=== PATIENT | female | born 1970 | race Caucasian/White ===

== ENCOUNTER 2018-08-04 16:51 | Emergency (ER) | payer SELFPAY ==
[2018-08-04] MEDS ORDERED: ASPIRIN 81 MG CHEW TAB PO ONE (17:01)
[2018-08-04] MEDS ORDERED: NITROGLYCERIN 0.4 MG TAB.SUBL SL ONE (17:02)
[2018-08-04 17:10] LABS: BASOPHILS % 0.4 (0.0-1.5); EOSINOPHILS % 2.1 % (0.0-6.8); MEAN CORPUSCULAR HEMOGLOBIN 30.4 pg (28.0-34.0); MONOCYTES % 5.1 % (0.0-11.0)
[2018-08-04] MEDS ORDERED: ONDANSETRON HCL/PF 4 MG/ 2ML VIAL IVP ONE (17:10)
[2018-08-04] MEDS ORDERED: fentaNYL CITRATE/PF 100 MCG/2 ML INJ. IVP ONE (17:10)
[2018-08-04 17:11] LABS: NEUTROPHILS # 6.2 # k/uL (1.4-7.7)
[2018-08-04 17:29] LABS: eGFR (Non-African) > 60
--- NOTE | 2018-08-04 19:21 | ED Physician Documentation ---
General Adult - HISTORIAN Historian: patient - HPI Stated Complaint: back pain-shoulder blade area Chief Complaint: Low Back Pain/ Injury Additional Information: Intro self as SNAGGER. pt presents to the ED via POV with 10/10 severe non radiating back pain and dyspnea. pt reports chills diaphoresis nausea. pt denies current chest pain,, syncope/near syncope, headache, dizziness, visual disturbances, v/d, fever, rash, sick contacts, dysuria, trauma. melena or hematochezia, bleeding or easy bruising, change in bowel or bladder function. anxiety or depression. ROS Negative unless otherwise specified. Pt denies cardiac hx or other history. denies having a PCP. - ROS CONST: chills MS/SKIN/LYMPH: none NEURO/PSYCH: denies: difficulty walking - PAST HX Past History: none Surgeries/Procedures: none Allergies/Adverse Reactions: Allergies Allergy/AdvReac Type Severity Reaction Status Date / Time No Known Drug Allergies Allergy Verified 08/04/18 17:16 Home Medications: Ambulatory Orders Medication Instructions Recorded NK 08/04/15 - SOCIAL HX Smoking History: non-smoker Alcohol Use: none Drug Use: none - FAMILY HX Family History: No - VITAL SIGNS Vital Signs: Vital Signs Temp Pulse Resp BP Pulse Ox 98.0 F 76 32 H 129/59 96 08/04/18 16:52 08/04/18 18:30 08/04/18 16:52 08/04/18 16:52 08/04/18 18:30 - REVIEWED ASSESSMENTS Nursing Assessment Reviewed: Yes Vitals Reviewed: Yes Progress - Progress Progress: pain improved after fentanyl, norflex - EKG/XRAY/CT EKG: NSR Comments: rate [address] depression/elevation. normal intervals axis qrs. interp by nc ED Results Lab/Radiology - Lab Results Lab Results: Lab Results 08/04/18 08/04/18 08/04/18 Unknown 16:57 16:57 WBC 10.00 K/ul K/ul (4.00-12.00) RBC 4.54 M/ul M/ul (3.90-5.20) Hgb 13.8 g/dL g/dL (12.0-16.0) Hct 40.7 % % (34.5-46.5) MCV 90.0 fl fl (80.0-100.0) MCH 30.4 pg pg (28.0-34.0) MCHC 33.9 g/dL g/dL (30.0-36.0) RDW 12.7 % % (11.3-14.3) Plt Count 230 K/mm3 K/mm3 (130-400) Neut % (Auto) 62.0 % % (39.0-79.0) Lymph % (Auto) 30.4 % % (16.0-50.0) Morton % (Auto) 5.1 % % (0.0-11.0) Eos % (Auto) 2.1 % % (0.0-6.8) Baso % (Auto) 0.4 (0.0-1.5) Neut # (Auto) 6.2 # k/uL # k/uL (1.4-7.7) Lymph # (Auto) 3.0 # k/uL # k/uL (0.6-4.0) Morton # (Auto) 0.5 # k/uL # k/uL (0.0-0.9) Eos # (Auto) 0.2 # k/uL # k/uL (0.0-0.6) Baso # (Auto) 0.0 # k/uL # k/uL (0.0-0.5) D-Dimer 569 ng/mL ng/mL (6.0-682) Sodium 140 mmol/L mmol/L (136-145) Potassium 3.9 mmol/L mmol/L (3.5-5.1) Chloride 101 mmol/L mmol/L (98-107) Carbon Dioxide 28 mmol/L mmol/L (22-30) BUN 14 mg/dL mg/dL (7-17) Creatinine 0.60 mg/dL mg/dL (0.52-1.04) Estimated Creat Clear 326 Est GFR ( Amer) > 60 (60 - ) Est GFR (Non-Af Amer) > 60 (60 - ) Glucose 95 mg/dL mg/dL (74-106) Calcium 8.3 mg/dL L mg/dL (8.4-10.2) Total Bilirubin 1.0 mg/dL mg/dL (0.2-1.3) AST 42 U/L U/L (15-46) ALT 31 U/L U/L (13-69) Alkaline Phosphatase 81 U/L U/L (38-126) Troponin I < 0.03 ng/mL L ng/mL (0.03-0.06) Total Protein 8.2 g/dL g/dL (6.3-8.2) Albumin 3.9 g/dL g/dL (3.5-5.0) - Radiology Radiology Impressions: Report Submission Date: Aug 04, 2018 7:12:07 PM PHYSICAL SCIENCES PROFESSOR Patient Study Name: EMILE THOMPSON Date: Aug 04, 2018 6:38:15 PM PHYSICAL SCIENCES PROFESSOR Modality Type: CT\SR Gender: F Description: CT CHEST W/ CONTRAST : 72 Institution: [facility] Physician: CATALINA DONOHUE CT chest with contrast CLINICAL HISTORY: chest back pain x3 days, comes and goes, no sx hx (Hx) / ITS.REASON chest back pain TECHNIQUE: 3 mm contiguous axial images of the chest with contrast. Sagittal and coronal reconstructions. FINDINGS: The lungs are clear. There is no evidence of pulmonary infiltrate, pleural effu bg or pneumothorax. The cardiac and mediastinal vascular structures enhance appropriately. The aorta and pulmonary arteries are normal in caliber. . The mediastinal contents are within normal limits.The osseous structures are unremarkable. There is old granulomatous disease. IMPRESSION: No acute disease in the chest Electronically signed on Aug 04, 2018 7:12:07 PM PHYSICAL SCIENCES PROFESSOR by: Hammad Juarez - Orders Orders: ED Orders Category Date Time Status Continuous EKG monitoring Q30M Care 08/04/18 16:57 Active Continuous Pulse Oximetry Q30M Care 08/04/18 16:[address] IV Lock 1T Care 08/04/18 16:57 Active CHEST 1VIEW [RAD] Stat Exams 08/04/[address] CHEST W/ CONTRAST Stat Exams 08/04/18 Ordered CBC/PLATELET/DIFF Routine Lab 08/04/18 16:57 Completed CMP Routine Lab 08/04/18 16:57 Completed D DIMER Stat Lab 08/04/18 Completed MAGNESIUM Stat Lab 08/04/18 Ordered TROPONIN I (cTnI) Stat Lab 08/04/18 Completed Aspirin Med 08/04/18 17:01 Discontinued 324 mg PO NOW ONE Nitroglycerin [Nitroquick] Med 08/04/18 17:02 Discontinued 0.4 mg SL NOW ONE Ondansetron HCl/Pf [Zofran 4 mg/2 ml] Med 08/04/18 17:10 Discontinued 4 mg IVP NOW ONE fentaNYL CITRATE/PF [Duragesic] Med 08/04/18 17:10 Discontinued 100 mcg IVP NOW ONE Oxygen Daily Oxygen 08/04/18 17:00 Ordered EKG WITH COMPARISON Stat Ther 08/04/18 16:57 Ordered General Adult Physical Exam - PHYSICAL EXAM GENERAL APPEARANCE: moderate distress EENT: eye inspection normal, ENT inspection normal, pharynx normal, no signs of dehydration, JOSE, no nystagmus, TM's nml NECK: normal inspection, thyroid normal RESPIRATORY: no resp distress, chest non-tender, breath sounds normal CVS: reg rate & rhythm, heart sounds normal, equal pulses, no murmur, no gallop, PMI nml, no JVD, no friction rub, 24 ABDOMEN: soft, no organomegaly, normal bowel sounds, no abdominal bruit, no distension BACK: no CVA tenderness, other (tenderness inferior to right scapula ) SKIN: normal color, diaphoresis, other (warm) EXTREMITIES: non-tender, normal range of motion, no evidence of injury, no edema, J, SNAGGER NEURO: oriented X3, motor nml, sensation nml, mood/affect nml Discharge Clincal Impression: Back pain Qualifiers: Back pain location: back pain in unspecified location Chronicity: acute Back pain laterality: unspecified Qualified Code(s): M54.9 - Dorsalgia, unspecified Referrals: Primary Doctor,No [Primary Care Provider] - 2 Days Additional Instructions: Rest. Ibuprofen 600 mg every 6 hours as needed for back pain Flexeril 10 m/2 to one tab every 8 hours as needed for muscle spasm. Do not drink alcohol or drive with this medication. Follow up with primary care next week. seek medical care immediately if difficult to wake, difficulty breathing, feeling faint or fainting, increased rash, chest pain, shortness of breath, or fever not controlled by tylenol/motrin or any concern. PLEASE UNDERSTAND THAT THIS IS AN EMERGENCY EVALUATION FOR YOUR COMPLAINT AND BY NATURE IS LIMITED AND NOT A SUBSTITUTE FOR ONGOING MEDICAL CARE. EVEN THOUGH TEST RESULTS AND TREATMENT PLAN WERE EXPLAINED THERE MAY BE A NEED FOR ADDITIONAL TESTING TO FULLY DETERMINE THE EXTENT OF YOUR ILLNESS/INJURY/OR CORTEZ RN SO YOU SHOULD CONTACT AND OR ESTABLISH WITH A PRIMARY CARE PROVIDER (OR REFERRAL DOCTOR IF APPLICABLE) FOR AN APPOINTMENT SOON POSSIBLE. Condition: Good Disposition: 01 HOME, SELF-CARE Decision to Admit: NO Date of Decison to Admit: 08/04/18 Decision Time: 19:32
[2018-08-04] MEDS ORDERED: KETOROLAC TROMETHAMINE 30 MG/1ML VIAL IVP ONE (19:22)
[2018-08-04] MEDS ORDERED: ORPHENADRINE CITRATE 60 MG/2 ML ML IV ONE (19:22)
[2018-08-04 20:01] VITALS: BP 154/79
--- NOTE | 2018-08-05 04:12 | Diagnostic Imaging Report ---
CATALINA DONOHUE [facility] [address] [facility].[address] [address] Report Submission Date: Aug 04, 2018 7:12:07 PM DIRECT SERVICE PROFESSIONAL Patient Study Name: EMILE THOMPSON Date: Aug 04, 2018 6:38:15 PM DIRECT SERVICE PROFESSIONAL Modality Type: CT\SR Gender: F Description: CT CHEST W/ CONTRAST : 72 Institution: [facility] Physician: CATALINA DONOHUE CT chest with contrast CLINICAL HISTORY: chest back pain x3 days, comes and goes, no sx hx (Hx) / ITS.REASON chest back pain TECHNIQUE: 3 mm contiguous axial images of the chest with contrast. Sagittal and coronal reconstructions. FINDINGS: The lungs are clear. There is no evidence of pulmonary infiltrate, pleural effusion or pneumothorax. The cardiac and mediastinal vascular structures enhance appropriately. The aorta and pulmonary arteries are normal in caliber. . The mediastinal contents are within normal limits.The osseous structures are unremarkable. There is old granulomatous disease. IMPRESSION: No acute disease in the chest Electronically signed on Aug 04, 2018 7:12:07 PM DIRECT SERVICE PROFESSIONAL by: Hammad LITTLE
--- NOTE | 2018-08-05 04:13 | Diagnostic Imaging Report ---
CATALINA DONOHUE [facility] [address] [facility].[address] [address] Report Submission Date: Aug 04, 2018 5:23:41 PM DIGITAL MEDIA BUYER Patient Study Name: EMILE THOMPSON Date: Aug 04, 2018 5:05:07 PM DIGITAL MEDIA BUYER Modality Type: DX Gender: F Description: CHEST : 72 Institution: [facility] Physician: CATALINA DONOHUE Portable chest Clinical history: Posterior chest pain for about 4 days that is worse today. Findings: Examination the chest single portable AP view demonstrates the lungs to be hypoventilated but clear. Cardiovascular and mediastinal silhouettes are within normal limits. Bony thorax is intact. Impression: 1. Hypoventilation. 2. No active disease. Electronically signed on Aug 04, 2018 5:23:41 PM DIGITAL MEDIA BUYER by: Cristopher LITTLE
== END 2018-08-04 19:53 | disposition home or self-care (01) ==
LOC: ED 16:51
DX: M54.9 Dorsalgia, unspecified (principal)
CPT/HCPCS: 36415; 71045; 71260; 80053; 83735; 84484; 85025; 85379; 93005; 96374; 96375; 99284; 99285; J1885; J2360; J2405; J3010; Q9967; S1016

== ENCOUNTER 2019-08-21 12:56 | Emergency (ER) | payer SELFPAY ==
[2019-08-21 13:18] VITALS: BP 165/67
--- NOTE | 2019-08-21 13:20 | ED Physician Documentation ---
General Adult - HISTORIAN Historian: patient - HPI Stated Complaint: Cough Chief Complaint: General Adult Onset: days ago Timing: still present Severity: moderate Further Comments: yes (Pt is a 49 yo female with cough, body aches x 4 day. Pt had fever 101.1 at home earlier in the course of sx. No n/v, cp.) - ROS CONST: fever, other (malaise, body aches) EYES/ENT: sore throat (2nd to coughing) CVS/RESP: cough GI/: none MS/SKIN/LYMPH: none - PAST HX Past History: other (hysterectomy) Allergies/Adverse Reactions: Allergies Allergy/AdvReac Type Severity Reaction Status Date / Time No Known Drug Allergies Allergy Verified 08/21/19 13:18 Home Medications: Ambulatory Orders Medication Instructions Recorded NK 08/04/15 - SOCIAL HX Smoking History: non-smoker - FAMILY HX Family History: No - VITAL SIGNS Vital Signs: Vital Signs Temp Pulse Resp BP Pulse Ox 96.8 F L 68 16 165/67 96 08/21/19 13:00 08/21/19 13:00 08/21/19 13:00 08/21/19 13:00 08/21/19 13:00 - REVIEWED ASSESSMENTS Nursing Assessment Reviewed: Yes Vitals Reviewed: Yes Progress - Progress Progress: Examination: PA and lateral chest. History: Evaluate lung avalos. Comparison exam: 04 August 2018 Findings: PA and lateral views of the chest demonstrates a normal cardiac and mediastinal silhouette. Left mid to lower lung focal consolidation. No blunting of the costophrenic margins. Osseous structures are appropriate for age. Impression: Left mid to lower lung focal pneumonic consolidation. Rx Doxycycline 100 mg. Take one every 12 hours for 10 days. Rx Robitussin AC (with codeine). Take 10 ml by mouth every 6 hours as needed for cough. Rx Albuterol (90 mcg/spray). Take 2 puffs every 4 hours as needed for wheezing. General Adult Physical Exam - PHYSICAL EXAM GENERAL APPEARANCE: moderate distress EENT: pharynx normal NECK: normal inspection RESPIRATORY: wheezes CVS: reg rate & rhythm, heart sounds normal ABDOMEN: soft, no organomegaly, normal bowel sounds BACK: normal inspection, no CVA tenderness SKIN: warm/dry, normal color EXTREMITIES: non-tender, normal range of motion, no evidence of injury NEURO: oriented X3, motor nml, sensation nml Discharge Clincal Impression: Pneumonia Qualifiers: Pneumonia type: due to unspecified organism Laterality: left Lung location: lower lobe of lung Qualified Code(s): J18.9 - Pneumonia, unspecified organism Referrals: Primary Doctor,No [Primary Care Provider] - 2 Days Condition: Stable Disposition: 01 HOME, SELF-CARE Decision to Admit: NO Decision Time: 15:45
--- NOTE | 2019-08-21 13:41 | Diagnostic Imaging Report ---
PATIENT MR#: [id number] PATIENT PATIENT NAME: EMILE THOMPSON DATE OF : 1970 REFERRING PHYSICIAN: Franco Lee EXAM DATE: 08/21/2019 ACCESSION NUMBER: [id number] EXAM DESCRIPTION: CHEST 2VIEW Examination: PA and lateral chest. History: Evaluate lung avalos. Comparison exam: 04 August 2018 Findings: PA and lateral views of the chest demonstrates a normal cardiac and mediastinal silhouette. Left mid to lower lung focal consolidation. No blunting of the costophrenic margins. Osseous structures are appropriat e for age. Impression: Left mid to lower lung focal pneumonic consolidation. Read by: Dr. Wai Rose Transcribed by: Transcribed Date: Electronically signed by: Dr. Wai Rose Date signed: 08/21/2019 1:40:51 PM
[2019-08-21] MEDS ORDERED: IPRATROPIUM/ALBUTEROL SULFATE 3 ML AMPUL.NEB NEB ONE (13:50)
[2019-08-21 15:08] LABS: BASOPHILS % 0.4 % (0.0-1.5); NEUTROPHILS # 4.8 # k/uL (1.4-7.7)
[2019-08-21 15:15] LABS: eGFR (Non-African) > 60
[2019-08-21 17:10] LABS: APPEARANCE,URINE CLOUDY (CLEAR); COLOR,URINE AMBER (YELLOW); OCCULT BLOOD,URINE NEGATIVE (NEGATIVE); PH URINE 5.5 (5.0 - 8.0)
== END 2019-08-21 15:41 | disposition home or self-care (01) ==
LOC: ED 12:56
DX: J18.9 Pneumonia, unspecified organism (principal)
CPT/HCPCS: 36415; 71046; 80053; 81002; 85025; 87040; 87400; 94640; 94760; 99284